=== PATIENT | male | born 1990 | race African-American/Black ===

== ENCOUNTER 2022-03-26 07:03 | Emergency (ER) | payer MEDICAID ==
[~2022-03-26] VITALS: Ht 182.9 cm; Wt 68.0 kg
[2022-03-26 08:55] LABS: BASOPHILS % 0.4 % (0.0-2.0); EOSINOPHILS % 2.1 % (0.0-5.0); HEMATOCRIT. 42.4 % (42.0-52.0); HEMOGLOBIN. 13.9 g/dL (14.0-18.0); LYMPHOCYTES % 26.5 % (20.0-50.0); MEAN CORPUSCULAR HEMOGLOBIN 29.5 pg (28.0-32.0); MEAN CORPUSCULAR VOLUME 90.2 fL (80.0-94.0); MEAN PLATELET VOLUME 7.1 fl (7.4-10.4); MONOCYTES % 7.9 % (2.0-8.0); NEUTROPHILS % 63.1 % (40.0-76.0); PLATELET 390 x1000/uL (130-400); RED CELL DISTRIBUTION WIDTH 14.2 % (11.6-14.6)
[2022-03-26 09:03] LABS: CHLORIDE 99 mEq/L (98-107)
[2022-03-26 09:12] LABS: CREATINE KINASE 798 IU/L (39-308); ETHANOL BLOOD < 10 mg/dL
[2022-03-26 09:20] VITALS: BP 127/80
[2022-03-26 09:45] LABS: CLARITY URINE CLEAR (CLEAR); COLOR URINE YELLOW (YELLOW); KETONES URINE NEGATIVE (NEGATIVE); LEUKOCYTE ESTERASE URINE NEGATIVE (NEGATIVE); NITRITE URINE NEGATIVE (NEGATIVE); OCCULT BLOOD URINE TRACE (NEGATIVE); PROTEIN URINE NEGATIVE (NEGATIVE); SPECIFIC GRAVITY URINE 1.028 (1.005-1.030)
[2022-03-26 10:01] LABS: *AMPHETAMINES SCREEN URINE PRESUMTIVE POSITIVE (NEGATIVE); *BARBITURATES SCREEN URINE NEGATIVE (NEGATIVE); *BENZODIAZEPINES SCREEN URINE NEGATIVE (NEGATIVE); *COCAINE SCREEN URINE NEGATIVE (NEGATIVE); CANNABINOID URINE SCREEN PRESUMTIVE POSITIVE (NEGATIVE); METHADONE URINE SCREEN NEGATIVE (NEGATIVE); OPIATES URINE SCREEN NEGATIVE (NEGATIVE); PHENCYCLIDINE URINE SCREEN NEGATIVE (NEGATIVE)
== END 2022-03-26 12:53 | disposition home or self-care (01) ==
LOC: EDBD 07:03 → ER 07:03
DX: G92.9 Unspecified toxic encephalopathy (principal); R51.9 Headache, unspecified; Z13.9 Encounter for screening, unspecified
CPT/HCPCS: 36415; 71045; 80053; 80305; 80307; 80320; 80329; 81003; 82140; 82550; 83605; 85025; 86850; 86900; 99285; G0480